=== PATIENT | female | born 1975 | race Caucasian/White ===

== ENCOUNTER → 2016-08-05 | Outpatient (CLI) | payer BC ==
--- NOTE | 2016-08-05 16:28 | US ---
Diagnostic Right Breast Ultrasound History: Erythema/cellulitis of the right breast, with firmness, assess for abscess. Technique: Limited mensah-scale and Doppler ultrasound in the region of mammographic abnormality is pe rformed. Real-time sonography is performed by the radiologist. Comparison: Right breast ultrasound November 21, 2015. Findings: Directed physical exam is performed, showing firmness in the outer right breast in the are a of interest, with no discrete lump. Ultrasound of the area shows mild skin thickening, with no foc al fluid collection/abscess. Numerous prominent ducts are present, similar in appearance to the prev ious ultrasound. Scattered simple cysts are present. Normal caliber axillary lymph nodes are presen t. Impression: BI-RADS 2: Benign Findings. Recommendation: Clinical follow up is recommended, with repeat ultrasound if clinical suspicion tavia ants. Screening mammograms are recommended when the patient's symptoms have resolved if these have n ot been performed at an outside facility. Findings discussed with Loni Pandya M.D., on August 05, 2016 at 1622 hours. [facility] will send a result letter to the patient. E:brenden
== END ==
LOC: FIMAGING 15:23
PROVIDERS: ATTEND Internal Medicine Infectious Disease
DX: Z13.9 Encounter for screening, unspecified (principal); L53.9 Erythematous condition, unspecified; N61.0 Mastitis without abscess

== ENCOUNTER 2018-07-21 21:21 | Emergency (ER) | payer OTHER, BC ==
[2018-07-21] MEDS ORDERED: KETOROLAC 30 MG/1 ML SDV IVP ONE (21:50)
[2018-07-21] MEDS ORDERED: METOCLOPRAMIDE 10 MG/2 ML VIAL IVP ONE (21:50)
[2018-07-21] MEDS ORDERED: NS 1,000 ML IV ONE (21:51)
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
[2018-07-21] MEDS ORDERED: PROMETHAZINE 25 MG PREPACK #4 BTL TAKEHOME ONE (22:30)
[2018-07-21 22:45] VITALS: BP 146/105
== END 2018-07-21 22:45 | disposition home or self-care (01) ==
DX: S06.0X0A Concussion without loss of consciousness, initial encounter (principal); I10 Essential (primary) hypertension; V89.2XXA Person injured in unspecified motor-vehicle accident, traffic, initial encounter
CPT/HCPCS: 96374; J1885; J2765